=== PATIENT | female | born 1970 | race Caucasian/White ===

== ENCOUNTER 2016-09-16 13:17 | Emergency (ER) | payer OTHER ==
[2016-09-16 13:33] VITALS: TEMP 99.9
--- NOTE | 2016-09-16 13:56 | CT ---
Study: CT of the Head. Indication: numbness to right side Technique: Axial CT images of the head were acquired without intravenous contrast. This exam was performed according to our departmental dose-optimization program, which includes automated exposure control, adjustment of the mA and/or kV according to patient size and/or use of iterative reconstruction technique. Comparison: None. Findings: No CT evidence of acute ischemia, acute hemorrhage, mass, mass effect, midline shift, or extra-axial fluid collection. Ventricles are normal in configuration without hydrocephalus. Brain parenchyma demonstrates a normal appearance for patient age. Paranasal sinuses are adequately aerated. Mastoid air cells are adequately aerated. Osseous structures and soft tissues are unremarkable. Impression: 1. No CT evidence of acute intracranial abnormality. Electronically signed by: Rudy Alvarez MD 09/16/2016 1:55 PM CDT
--- NOTE | 2016-09-16 15:00 | ED.PDOC ---
History of Present Illness - General Chief Complaint: Neuro Symptoms/Deficits Stated Complaint: numbness to right side Time Seen by Provider: 09/16/16 14:24 Source: patient Exam Limitations: no limitations - History of Present Illness Initial Comments: Jacque Perry 45 y/o female stated that right side of her face down to her legs had been constantly numb for the last one week and felt lips are tingling and noticed sometimes hard to talk.No history of fever ,trauma,N/V/D.Went ro her md was advised to come here ar er. Timing/Duration: 1 week, constant Severity: moderate Improving Factors: nothing Worsening Factors: nothing Associated Symptoms: numbness in legs/feet, other - weird sound right ear (waves ) Allergies/Adverse Reactions: Allergies NO KNOWN ALLERGY Allergy (Verified 05/16/14 11:22) Home Medications: Ambulatory Orders Insulin Lispro (Human) [Humalog] 0 unit SC ACHS 05/16/14 Metoprolol Succinate [Metoprolol Succinate ER] 50 mg PO DAILY 05/16/14 Pravastatin Sodium 40 mg PO BEDTIME 05/16/14 Insulin Glargine [Lantus Solostar] 35 unit SC BEDTIME 09/16/16 Review of Systems - Review of Systems Constitutional: States: no symptoms reported EENTM: States: no symptoms reported Respiratory: States: no symptoms reported Cardiology: States: no symptoms reported Gastrointestinal/Abdominal: States: no symptoms reported Musculoskeletal: States: no symptoms reported Skin: States: no symptoms reported Neurological: States: see HPI Past Medical History (General) - Patient Medical History Hx Cardiac Disorders: Yes Hx Congestive Heart Failure: No Hx Hypertension: Yes Hx Diabetes: Yes Hx MRSA: No Surgical History: cholecystectomy, other - knee,breast reduction - Vaccination History Hx Influenza Vaccination: No Hx Pneumococcal Vaccination: No - Social History Hx Tobacco Use: Yes Hx Alcohol Use: No Hx Substance Use Treatment: No Hx Physical Abuse: No Hx Emotional Abuse: No Hx Suspected Abuse: No - Activities of Daily Living Patient Lives Alone: No - family - Female History Patient is a Female of Child Bearing Age (10 -59 yrs old): Yes Hx Last Menstrual Period: 05/08/14 Patient : No Family Medical History - Family History Mother Living Status: Still Living Hx Family Hypertension: Yes Hx Family Diabetes: Yes - mom Physical Exam - Physical Exam General Appearance: Alert, Comfortable, No apparent distress, Other - speech fluent Eye Exam: bilateral normal ENT Exam: normal ENT inspection, hearing grossly normal, TMs normal, pharynx normal Neck: non-tender, full range of motion, supple Respiratory: chest non-tender, lungs clear Cardiovascular/Chest: normal peripheral pulses, regular rate, rhythm, no murmur Peripheral Pulses: radial,right: 1+, radial,left: 1+ Gastrointestinal/Abdominal: non tender, soft, no organomegaly Back Exam: normal inspection, no CVA tenderness Extremities Exam: non-tender, normal range of motion, no evidence of injury Mental Status: alert, oriented x 3 green pipefitter Exam: normal hearing, normal speech, PERRL Coordination/Gait: negative Romberg's sign Motor/Sensory: no motor deficit, no sensory deficit, no pronator drift Skin Exam: normal color, warm/dry Progress - Progress Progress: 09/16/16 15:04 Vital Signs - 8 hr 09/16/16 13:28 Temperature 99.9 F H Pulse Rate [ 92 H Right Brachial] Respiratory 20 Rate Blood Pressure 174/94 [Right Arm] O2 Sat by Pulse 100 Oximetry Laboratory Tests 09/16/16 09/16/16 13:50 13:50 WBC 7.4 RBC 4.92 Hgb 13.3 Hct 39.8 MCV 80.8 L MCH 27.0 MCHC 33.4 RDW 14.5 Plt Count 231 MPV 9.0 Absolute Neuts (auto) 4.60 Absolute Lymphs (auto) 2.10 Absolute Monos (auto) 0.40 Absolute Eos (auto) 0.10 Absolute Basos (auto) 0.00 Neutrophils % 62.5 Lymphocytes % 29.1 Monocytes % 6.0 Eosinophils % 1.8 Basophils % 0.6 Sodium 139 Potassium 3.8 Chloride 107 Carbon Dioxide 23 Anion Gap 12.8 BUN 14 Creatinine 0.68 BUN/Creatinine Ratio 20.6 H Random Glucose 125 H Serum Osmolality 279.5 Calcium 9.3 Total Bilirubin 0.7 AST 15 ALT 12 Alkaline Phosphatase 54 Serum Total Protein 7.9 Albumin 4.4 Globulin 3.5 Albumin/Globulin Ratio 1.3 - Results/Orders Results/Orders: carotid artery doppler-no significant stenosis bilaterally - EKG/XRAY/CT EKG: Sinus, no ST T wave changes Comments: heart rate -68 CT Ordered: Yes - head -no acute abnormalities Stroke Information - Onset of Symptoms Stroke Onset of Symptoms Date: 09/08/16 - No physical exam finding s of stroke - Contraindications Antithrombotic Contraindication: Treatment not indicated Departure - Departure Clinical Impression: Numbness on left side Time of Disposition: 15:31 Disposition: Discharge to Home or Self Care Condition: Good Departure Forms: ED Discharge - Pt. Copy, Patient Portal Self Enrollment Instructions: DI for Numbness/tingling Diet: low fat, low cholesterol, low salt diet Referrals: Marco Alegre MD [Primary Care Provider] - 1-2 Weeks Home Medications: Ambulatory Orders Insulin Lispro (Human) [Humalog] 0 unit SC ACHS 05/16/14 Metoprolol Succinate [Metoprolol Succinate ER] 50 mg PO DAILY 05/16/14 Pravastatin Sodium 40 mg PO BEDTIME 05/16/14 Insulin Glargine [Lantus Solostar] 35 unit SC BEDTIME 09/16/16 Additional Instructions: RETURN TO EMERGENCY ROOM NEEDED;Aspirin 81 mg one tablet daily;Follow up with primary md 09/19/2016
--- NOTE | 2016-09-16 15:15 | US ---
EXAM DESCRIPTION: Carotid Doppler sonogram CLINICAL HISTORY: Right-sided numbness. COMPARISON: [None Available.] TECHNIQUE: [Color Doppler evaluation of the extracranial carotids] FINDINGS: Right carotid: Peak systolic velocity common carotid artery = 69 cm/s Peak systolic velocity internal carotid artery = 51 cm/s Peak systolic velocity external carotid artery = 64 cm/s ICA CCA ratio 0.7 Left carotid: Peak systolic velocity common carotid artery = 77 cm/s Peak systolic velocity internal carotid artery = 85 cm/s Peak systolic velocity external carotid artery = 59 cm/s ICA CCA ratio 1.1 Antegrade flow is seen in both vertebral arteries Normal flow velocities and waveforms are demonstrated bilaterally. IMPRESSION: [No atherosclerotic involvement of the extracranial carotid arteries. No evidence of hemodynamically significant stenosis] Electronically signed by: Ayad Crowder MD 09/16/2016 3:14 PM CDT
[2016-09-16 15:18] VITALS: BP 134/90; O2SAT 96
== END 2016-09-16 15:41 | disposition home or self-care (01) ==
LOC: ER 13:17
DX: R20.0 Anesthesia of skin (principal); I10 Essential (primary) hypertension; E11.9 Type 2 diabetes mellitus without complications; Z87.891 Personal history of nicotine dependence; Z79.4 Long term (current) use of insulin; Z79.899 Other long term (current) drug therapy

== ENCOUNTER → 2016-09-20 | Outpatient (CLI) | payer OTHER ==
--- NOTE | 2016-09-20 13:39 | MRI ---
EXAM DESCRIPTION: Brain w/wo Contrast CLINICAL HISTORY: HEMIPLEGIA COMPARISON: CT head September 16, 2016 TECHNIQUE: Multiplanar, multi sequence MR images of the head are obtained with and without IV gadolinium contrast using standard imaging protocol. FINDINGS: The midline structures are not displaced. Sulci are age appropriate. The lateral, third, and fourth ventricles are normal in size, shape, and anatomic positioning. Normal blackman-white differentiation is seen. Normal flow voids are seen in the major intracranial vessels including the dural venous sinuses. There is no evidence of mass, mass effect, hydrocephalus, or acute intracranial hemorrhage. No abnormal extra-axial fluid collections are seen. No abnormal enhancement is seen. Mild scattered foci of increased FLAIR/T2 signal in the periventricular white matter seen. There is a 6 mm focus in the left posterior frontal lobe and 8mm focus in the left posterior frontal lobe. No diffusion restriction is seen. No abnormal enhancement in these regions. No abnormal signal seen in the marylin or brachium pontis. Gradient echo images show no abnormal signal. The pituitary is unremarkable. There is a 2 cm fluid signal mucous retention cyst in the floor the left maxillary sinus. Tiny amount of fluid in the dependent portion of the left maxillary sinus is seen. The visualized orbits and mastoid air cells are unremarkable. IMPRESSION: Mild nonspecific periventricular white matter signal changes on FLAIR/T2-weighted sequences. No associated enhancement or diffusion restriction is seen. Otherwise unremarkable pre and postcontrast MRI of the brain. No evidence of acute intracranial ischemia, mass, mass effect, or abnormal enhancement is seen. Electronically signed by: Riley Gallagher MD 09/20/2016 1:32 PM CDT
== END | disposition home or self-care (01) ==
LOC: MRI 09:35
PROVIDERS: ATTEND Family Medicine
DX: G81.91 Hemiplegia, unspecified affecting right dominant side (principal)

== ENCOUNTER → 2017-11-23 | Outpatient (CLI) | payer BC, OTHER ==
--- NOTE | 2017-11-23 16:39 | MAM ---
EXAM DESCRIPTION: 3D Screening BILATERAL : Digital Mammography. CLINICAL HISTORY: 47 years Female SCREENING . No complaints. No personal history of breast cancer. Remote family history of breast cancer. Childbirth. Hysterectomy. No HRT. Bilateral breast reduction 10 years ago.. Lifetime risk of developing breast cancer (Tyrer-Cuzick model)(%): 8.4. COMPARISON: 2-D digital screening bilateral mammography 10/24/2010. TECHNIQUE: Bilateral CC and MLO projection full-field images, Digital tomosynthesis mammographic technique. Bilateral digital 2-D full-field MLO images. CAD not utilized. FINDINGS: The breast parenchymal density pattern is: Scattered areas of fibroglandular density. No skin thickening or nipple retraction. Right breast axillary lymph nodes. Bilateral solitary microcalcifications. Large retroareolar coarse calcification on the left. No new focal, stellate mass or density, focal asymmetry , and no suspicious microcalcifications bilaterally. Stable mammograms compared to prior study. IMPRESSION: Benign exam. BIRAD CATEGORY: 2 BENIGN FINDINGS. RECOMMENDATIONS: FOLLOW UP: Routine digital bilateral screening, one year interval from November 2017. Written communication explaining the IMPRESSION and follow-up, will be mailed to the patient and referring health care provider. According to the [employer], yearly mammograms are recommended starting at age 40 and continuing as long as a woman is in good health. Any breast change noted on a breast self-exam should be reported promptly to the patient's healthcare provider. Breast MRI is recommended for women with an approximately 20-25% or greater lifetime risk of breast cancer, including women with a strong family history of breast or ovarian cancer and women who have been treated for Hodgkin's disease. A negative mammographic report should not delay tissue diagnosis in patients with significant clinical history or physical findings. Extremely dense breast tissue limits the sensitivity of digital mammography. Electronically signed by: Emmett Hodges MD 11/23/2017 4:38 PM CDT
== END ==
LOC: MAMMO 11:01
PROVIDERS: ATTEND Obstetrics & Gynecology
DX: Z12.31 Encounter for screening mammogram for malignant neoplasm of breast (principal)

== ENCOUNTER → 2018-11-30 | Outpatient (CLI) | payer BC | LOC: GMA MATASK 10:33 | PROVIDERS: ATTEND Family Medicine | DX: D51.9 Vitamin B12 deficiency anemia, unspecified (principal); E11.9 Type 2 diabetes mellitus without complications ==

== ENCOUNTER → 2019-08-20 | Outpatient (CLI) | payer BC | LOC: GMA MATASK 14:18 | PROVIDERS: ATTEND Family Medicine | DX: M25.50 Pain in unspecified joint (principal) ==